=== PATIENT | female | born 1935 | race Caucasian/White ===

== ENCOUNTER 2017-10-18 13:07 | Inpatient (IN) | payer MEDICARE, MEDICAID ==
[~2017-10-18] VITALS: Ht 142.2 cm; Wt 104.3 kg
[2017-10-18] VITALS (256 sets, daily range): BP systolic 119–135; BP diastolic 40–88; PULSE 59–82; TEMP 97.4–97.7; O2SAT 76–100
[~2017-10-18 13:07] MED LIST: 00186-0372-20 IH; ALBUTEROL SULFAT3 M3 IH; ALDACTONE 25MG25 M1 PO; ASPIRIN 81M81 MG/TA2 PO; BETAPACE 120MG120 MG PO; BROVANA15 MCG/2 M IH; CAPOTEN 25MG25 MG PO; COUMADIN4 MG PO; LASIX 40MG TABL40 MG PO; LIPITOR 80MG80 MG PO; MUCINEX 60600 MG/TA1 PO; OXYGEN; PREDNISONE10 MG PO; PROTONIX40 MG/Pack PO; VENTOLIN0.09 MG IH
[2017-10-18 13:51] LABS: ARTERIAL BLD GAS O2 SATURATION 97.7 % (92-100); ARTERIAL BLD GAS TCO2 CT 36.3; ARTERIAL BLOOD GAS HCO3 33.6 meq/L (22-26)
[2017-10-18 13:52] LABS: ARTERIAL BLOOD GAS PCO2 88.5 mmHg (35-45); ARTERIAL BLOOD GAS PO2 148.9 mmHg (80-100)
[2017-10-18 14:11] LABS: BASO % 0.2 % (0.0-2.0); EOS # 0.1 (0.0-0.7); EOS % 0.3 % (0-4.0); GRAN # 12.8 (1.4-6.5); GRAN % 82.1 % (42.2-75.2); HEMOGLOBIN 11.4 g/dl (12.5-16.0); LYMPH # 1.3 (1.2-3.4); LYMPH % 8.3 % (20.0-51.0); MEAN CELL VOLUME 97 fl (80.0-100.0); MEAN CORPUSCULAR HEMOGLOBIN 30 pg (27.0-31.0); MEAN CORPUSCULAR HGB CONC 31 g/dl (33.0-37.0); MEAN PLATELET VOLUME 10.7 fl (7.4-10.4); MONO # 1.3 (0.1-0.6); MONO % 8.3 % (1.7-9.3); PLATELET COUNT 367 K/mm3 (130-400); RED BLOOD COUNT 3.77 M/mm3 (4.10-5.30); REDCELL DISTRIBUTION WIDTH-CV 18.9 % (11.5-14.5)
[2017-10-18 14:12] LABS: HEMATOCRIT 36.7 % (37.0-47.0)
[2017-10-18 14:21] LABS: INR 1.7 (0.8-3.0); PROTHROMBIN TIME 19.3 SECONDS (9.7-12.8)
[2017-10-18 14:25] LABS: ALBUMIN 3.5 gm/dL (3.5-5.0); BILIRUBIN,TOTAL 2.2 mg/dL (0.0-1.0); CALCIUM 9.1 mg/dL (8.4-10.2); CREATININE, serum 1.37 mg/dL (0.52-1.25); POTASSIUM 4.6 mmol/L (3.4-5.0); TOTAL PROTEIN 6.9 gm/dL (6.4-8.2)
[2017-10-18 15:37] LABS: ARTERIAL BLD GAS O2 SATURATION 99.1 % (92-100); ARTERIAL BLD GAS TCO2 CT 32.3; ARTERIAL BLOOD GAS BASE EXCESS 7.6 (-2-2); ARTERIAL BLOOD GAS HCO3 31.1 meq/L (22-26); ARTERIAL BLOOD GAS PCO2 39.7 mmHg (35-45); ARTERIAL BLOOD GAS pH 7.51 (7.35-7.45)
[2017-10-18 15:38] LABS: ARTERIAL BLOOD GAS PO2 385.9 mmHg (80-100)
[2017-10-18 16:19] LABS: COLLECTION METHOD CATHETER
[2017-10-18 16:29] LABS: HYALINE CAST >12 /lpf; MUCOUS Present /lpf; PH 6 (5-8); SQUAMOUS EPITHELIAL 0-2 /hpf; URINE APPEARANCE Clear; URINE BACTERIA Rare /hpf; URINE BILIRUBIN Negative (NEGATIVE); URINE BLOOD 1+ (NEGATIVE); URINE COLOR Yellow; URINE GLUCOSE Negative (NEGATIVE); URINE KETONE Negative (NEGATIVE); URINE LEUKOCYTE ESTERASE Negative (NEGATIVE); URINE NITRATE Negative (NEGATIVE); URINE PROTEIN(semi-quant) 1+ (NEGATIVE); URINE RBC 0-2 /hpf
[2017-10-18 19:23] LABS: ARTERIAL BLD GAS O2 SATURATION 97.7 % (92-100); ARTERIAL BLD GAS TCO2 CT 32.2; ARTERIAL BLOOD GAS HCO3 31.1 meq/L (22-26); ARTERIAL BLOOD GAS PCO2 37.5 mmHg (35-45); ARTERIAL BLOOD GAS PO2 113.3 mmHg (80-100); ARTERIAL BLOOD GAS pH 7.54 (7.35-7.45)
[2017-10-19] VITALS (52 sets, daily range): BP systolic 100–117; BP diastolic 34–55; PULSE 59; TEMP 96.8–97.6; O2SAT 97–100
[2017-10-19 05:16] LABS: MEAN CELL VOLUME 98 fl (80.0-100.0); MEAN CORPUSCULAR HGB CONC 32 g/dl (33.0-37.0); RED BLOOD COUNT 2.93 M/mm3 (4.10-5.30); REDCELL DISTRIBUTION WIDTH-CV 18.6 % (11.5-14.5)
[2017-10-19 05:17] LABS: ARTERIAL BLD GAS O2 SATURATION 97.2 % (92-100); ARTERIAL BLD GAS TCO2 CT 31.2; ARTERIAL BLOOD GAS BASE EXCESS 6.8 (-2-2); ARTERIAL BLOOD GAS PCO2 37.7 mmHg (35-45); ARTERIAL BLOOD GAS PO2 106.5 mmHg (80-100); ARTERIAL BLOOD GAS pH 7.52 (7.35-7.45)
[2017-10-19 05:20] LABS: HEMATOCRIT 28.6 % (37.0-47.0); MEAN CORPUSCULAR HEMOGLOBIN 31 pg (27.0-31.0)
[2017-10-19 05:21] LABS: PLATELET COUNT 254 K/mm3 (130-400)
[2017-10-19 05:30] LABS: ALBUMIN 2.5 gm/dL (3.5-5.0); CALCIUM 8.2 mg/dL (8.4-10.2); CREATININE, serum 1.28 mg/dL (0.52-1.25); MAGNESIUM 2.1 mg/dL (1.6-2.3); PHOSPHOROUS 3.9 mg/dL (2.5-4.5); POTASSIUM 3.7 mmol/L (3.4-5.0); TOTAL PROTEIN 5.1 gm/dL (6.4-8.2)
[2017-10-19 05:33] LABS: INR 2.1 (0.8-3.0); PROTHROMBIN TIME 24.4 SECONDS (9.7-12.8)
[2017-10-19 05:59] LABS: LYMPHOCYTE 1 % (20.0-51.0)
[2017-10-19 06:02] LABS: NEUTROPHILS 98 % (42.0-75.2); POIKILOCYTOSIS 3+
[2017-10-19 06:03] LABS: ANISOCYTOSIS 2+
[2017-10-19 06:05] LABS: SCHISTOCYTES 1+
[2017-10-19 06:08] LABS: MICROCYTOSIS 1+
[2017-10-19 06:10] LABS: HYPOCHROMIA 2+
[2017-10-19 06:12] LABS: PLATELET ESTIMATE NORMAL (NORMAL)
[2017-10-19 08:21] LABS: PATHOLOGY DIFF REVIEW OK
[2017-10-19 10:14] LABS: ARTERIAL BLD GAS O2 SATURATION 91.7 % (92-100); ARTERIAL BLD GAS TCO2 CT 32.5; ARTERIAL BLOOD GAS BASE EXCESS 6.2 (-2-2); ARTERIAL BLOOD GAS HCO3 31.1 meq/L (22-26); ARTERIAL BLOOD GAS PCO2 46.5 mmHg (35-45); ARTERIAL BLOOD GAS pH 7.44 (7.35-7.45)
[2017-10-20] VITALS (675 sets, daily range): BP systolic 101–112; BP diastolic 32–57; PULSE 59–61; TEMP 96.9–97.9; O2SAT 35–100
[2017-10-20 03:47] LABS: HEMOGLOBIN 10.3 g/dl (12.5-16.0); MEAN CELL VOLUME 96 fl (80.0-100.0); MEAN CORPUSCULAR HEMOGLOBIN 31 pg (27.0-31.0); MEAN CORPUSCULAR HGB CONC 32 g/dl (33.0-37.0); MEAN PLATELET VOLUME 10.8 fl (7.4-10.4); PLATELET COUNT 317 K/mm3 (130-400); RED BLOOD COUNT 3.37 M/mm3 (4.10-5.30)
[2017-10-20 03:51] LABS: HEMATOCRIT 32.3 % (37.0-47.0)
[2017-10-20 03:53] LABS: PROTHROMBIN TIME 23.3 SECONDS (9.7-12.8)
[2017-10-20 04:08] LABS: ANISOCYTOSIS 2+; BAND 8 % (0-10); LYMPHOCYTE 3 % (20.0-51.0); NEUTROPHILS 86 % (42.0-75.2); PLATELET ESTIMATE NORMAL (NORMAL)
[2017-10-20 04:11] LABS: ALBUMIN 2.8 gm/dL (3.5-5.0); BILIRUBIN,TOTAL 1.7 mg/dL (0.0-1.0); CALCIUM 8.7 mg/dL (8.4-10.2); CREATININE, serum 1.34 mg/dL (0.52-1.25); MAGNESIUM 2.2 mg/dL (1.6-2.3); PHOSPHOROUS 3.8 mg/dL (2.5-4.5); POTASSIUM 3.5 mmol/L (3.4-5.0); TOTAL PROTEIN 5.8 gm/dL (6.4-8.2)
[2017-10-20 04:21] LABS: TROPONIN-I 0.031 ng/mL (0.000-0.034)
[2017-10-20 05:22] LABS: ARTERIAL BLOOD GAS BASE EXCESS 3.3 (-2-2); ARTERIAL BLOOD GAS HCO3 28.5 meq/L (22-26); ARTERIAL BLOOD GAS PCO2 46.5 mmHg (35-45); ARTERIAL BLOOD GAS PO2 82.2 mmHg (80-100); ARTERIAL BLOOD GAS pH 7.41 (7.35-7.45)
[2017-10-21] VITALS (1168 sets, daily range): BP systolic 91–106; BP diastolic 33–41; PULSE 59–60; TEMP 97.5–98.8; O2SAT 67–100
[2017-10-21 04:55] LABS: ARTERIAL BLD GAS O2 SATURATION 91.1 % (92-100); ARTERIAL BLD GAS TCO2 CT 28.4; ARTERIAL BLOOD GAS BASE EXCESS 0.8 (-2-2); ARTERIAL BLOOD GAS HCO3 26.8 meq/L (22-26); ARTERIAL BLOOD GAS PCO2 49.4 mmHg (35-45); ARTERIAL BLOOD GAS PO2 68.9 mmHg (80-100); ARTERIAL BLOOD GAS pH 7.35 (7.35-7.45)
[2017-10-21 05:42] LABS: BASO % 0.1 % (0.0-2.0); GRAN # 16.2 (1.4-6.5); GRAN % 92.4 % (42.2-75.2); LYMPH # 0.2 (1.2-3.4); MEAN CELL VOLUME 99 fl (80.0-100.0); MEAN CORPUSCULAR HGB CONC 31 g/dl (33.0-37.0); MEAN PLATELET VOLUME 11.3 fl (7.4-10.4); MONO % 5.4 % (1.7-9.3); PLATELET COUNT 245 K/mm3 (130-400); RED BLOOD COUNT 3.02 M/mm3 (4.10-5.30); REDCELL DISTRIBUTION WIDTH-CV 18.9 % (11.5-14.5)
[2017-10-21 05:46] LABS: HEMATOCRIT 29.8 % (37.0-47.0); HEMOGLOBIN 9.3 g/dl (12.5-16.0); MEAN CORPUSCULAR HEMOGLOBIN 31 pg (27.0-31.0)
[2017-10-21 05:52] LABS: ALBUMIN 2.5 gm/dL (3.5-5.0); BILIRUBIN,TOTAL 1.2 mg/dL (0.0-1.0); CALCIUM 8.3 mg/dL (8.4-10.2); CREATININE, serum 1.89 mg/dL (0.52-1.25); MAGNESIUM 2.1 mg/dL (1.6-2.3); PHOSPHOROUS 4.5 mg/dL (2.5-4.5); POTASSIUM 4.1 mmol/L (3.4-5.0); TOTAL PROTEIN 5.3 gm/dL (6.4-8.2)
[2017-10-21 05:54] LABS: INR 1.5 (0.8-3.0); PROTHROMBIN TIME 17.3 SECONDS (9.7-12.8)
[2017-10-21 20:45] LABS: ARTERIAL BLD GAS O2 SATURATION 89.9 % (92-100); ARTERIAL BLD GAS TCO2 CT 26.2; ARTERIAL BLOOD GAS BASE EXCESS -0.5 (-2-2); ARTERIAL BLOOD GAS HCO3 24.9 meq/L (22-26); ARTERIAL BLOOD GAS PCO2 43.8 mmHg (35-45); ARTERIAL BLOOD GAS PO2 62.3 mmHg (80-100); ARTERIAL BLOOD GAS pH 7.37 (7.35-7.45)
[2017-10-22] VITALS (580 sets, daily range): BP systolic 101–118; BP diastolic 36–42; PULSE 59–60; TEMP 98.4–99.2; O2SAT 81–97
[2017-10-22 05:48] LABS: ALBUMIN 2.5 gm/dL (3.5-5.0); BILIRUBIN,TOTAL 1.5 mg/dL (0.0-1.0); CREATININE, serum 2.48 mg/dL (0.52-1.25); MAGNESIUM 2.1 mg/dL (1.6-2.3); PHOSPHOROUS 4.9 mg/dL (2.5-4.5); POTASSIUM 4.1 mmol/L (3.4-5.0); TOTAL PROTEIN 5.4 gm/dL (6.4-8.2)
[2017-10-22 10:49] LABS: HEMATOCRIT 30.7 % (37.0-47.0); HEMOGLOBIN 9.2 g/dl (12.5-16.0); MEAN CELL VOLUME 101 fl (80.0-100.0); MEAN CORPUSCULAR HEMOGLOBIN 30 pg (27.0-31.0); MEAN CORPUSCULAR HGB CONC 30 g/dl (33.0-37.0); MEAN PLATELET VOLUME 11.8 fl (7.4-10.4); PLATELET COUNT 244 K/mm3 (130-400); RED BLOOD COUNT 3.03 M/mm3 (4.10-5.30); REDCELL DISTRIBUTION WIDTH-CV 18.9 % (11.5-14.5)
[2017-10-22 11:04] LABS: BAND 1 % (0-10); LYMPHOCYTE 2 % (20.0-51.0); NEUTROPHILS 93 % (42.0-75.2); PLATELET ESTIMATE NORMAL (NORMAL)
[2017-10-22 11:05] LABS: ANISOCYTOSIS 1+; HYPOCHROMIA 3+
[2017-10-22 11:06] LABS: BURR CELLS 2+
[2017-10-22 11:08] LABS: OVALOCYTES 1+; POIKILOCYTOSIS 1+
== END 2017-10-22 14:35 | disposition short-term general hospital (02) | DRG 870 ==
LOC: ICU 13:07
PROVIDERS: Internal Medicine; Internal Medicine Pulmonary Disease; Physician Assistant
PROC: 0BH17EZ Insertion of Endotracheal Airway into Trachea, Via Natural or Artificial Opening (ICD-10-PCS; principal; 2017-10-18)
PROC: 5A1955Z Respiratory Ventilation, Greater than 96 Consecutive Hours (ICD-10-PCS; 2017-10-18)
DX: A41.9 Sepsis, unspecified organism (principal); J96.01 Acute respiratory failure with hypoxia; J96.02 Acute respiratory failure with hypercapnia; I50.33 Acute on chronic diastolic (congestive) heart failure; J15.211 Pneumonia due to Methicillin susceptible Staphylococcus aureus; Z66 Do not resuscitate; I13.0 Hypertensive heart and chronic kidney disease with heart failure and stage 1 through stage 4 chronic kidney disease, or unspecified chronic kidney disease; Z68.42 Body mass index [BMI] 45.0-49.9, adult; N18.4 Chronic kidney disease, stage 4 (severe); N17.9 Acute kidney failure, unspecified; I48.0 Paroxysmal atrial fibrillation; I27.22 Pulmonary hypertension due to left heart disease; I08.3 Combined rheumatic disorders of mitral, aortic and tricuspid valves; J44.9 Chronic obstructive pulmonary disease, unspecified; I25.10 Atherosclerotic heart disease of native coronary artery without angina pectoris; E66.01 Morbid (severe) obesity due to excess calories; Z95.1 Presence of aortocoronary bypass graft; Z79.01 Long term (current) use of anticoagulants; Z95.2 Presence of prosthetic heart valve; Z95.0 Presence of cardiac pacemaker; Z86.718 Personal history of other venous thrombosis and embolism
CPT/HCPCS: 99233-AI; C1751; C9113; J0330; J0692; J1650; J1940; J1956; J2185; J2250; J2704; J2930; J3010; J3370; J3480; J7030; J7050; J7060; J7512; Q9967